=== PATIENT | male | born 1980 | race Caucasian/White ===

== ENCOUNTER 2017-06-05 02:25 | Emergency (ER) | payer OTHER ==
[~2017-06-05] VITALS: Ht 193 cm; Wt 113.4 kg
--- NOTE | 2017-06-05 02:54 | NUR ---
PT BIB SELF C/O ASTHMA/SOB, STATES HES RAN OUT OF HIS INHALER LAST WEEK. PT PLACED ON PHYSICAL BIOCHEMIST. PT VSS/RESP EVEN UNLABORED/NAD NOTED/SKIN WARM AND DRY/DENIES N-V-D/AOX4. AT BEDSIDE FOR EVAL.
--- NOTE | 2017-06-05 02:56 | NUR ---
RT CALLED FOR NEB TX.
[2017-06-05] MEDS ORDERED: ALBUTEROL FS 2.5 MG/0.5 ML VIAL.NEB NEB ONE (03:00)
--- NOTE | 2017-06-05 03:01 | NUR ---
XRAY AT BEDSIDE.
--- NOTE | 2017-06-05 03:12 | NUR ---
RT AT BEDSIDE FOR LUKE GARCIA
--- NOTE | 2017-06-05 03:17 | NUR ---
PT RECEIVING BREATHING TX.
--- NOTE | 2017-06-05 04:01 | NUR ---
Patient discharged to home in stable condition. Written and verbal after care instructions given. Patient verbalizes understanding of instruction. Pt ambulatory with a steady gait.
[2017-06-05 04:02] VITALS: BP 126/83
== END 2017-06-05 04:03 | disposition home or self-care (01) ==
LOC: ER 02:34
DX: J45.901 Unspecified asthma with (acute) exacerbation (principal); F17.200 Nicotine dependence, unspecified, uncomplicated
CPT/HCPCS: 71010; 94640; 99283; A4606; Z7610